=== PATIENT | female | born 1955 | race Caucasian/White ===

== ENCOUNTER → 2019-11-02 | Emergency (ER) | payer SELFPAY ==
[~2019-11-02] MED LIST: BENZTROPINE MESYLATE INJ 2 MG/2 ML AMPULE IM ONE; BENZTROPINE MESYLATE INJ 2 MG/2 ML AMPULE IM SCH; CEFTRIAXONE INJ 1000 MG VIAL IM ONE; CEPHALEXIN 500 MG CAPSULE PO SCH; DIPHENHYDRAMINE HCL 50 MG/ML VIAL IM ONE; HALOPERIDOL DECANOATE INJ 100 MG/1 ML VIAL IM ONE; HALOPERIDOL LACTATE INJ 5 MG/1 ML VIAL IM PRN; HALOPERIDOL LACTATE INJ 5 MG/1 ML VIAL IM SCH; KETAMINE HCL INJ 500 MG/10 ML VIAL IM ONE; LIDOCAINE 1% INJ (10 MG/ML) 10 ML MDV INJ ONE; LORAZEPAM INJ 2 MG/1 ML VIAL IM ONE; LORAZEPAM INJ 2 MG/1 ML VIAL IM PRN; MIDAZOLAM 2 MG/2 ML INJ IM ONE; ZIPRASIDONE MESYLATE INJ/PF 20 MG SDV IM ONE; ZIPRASIDONE MESYLATE INJ/PF 20 MG SDV IM PRN
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
[2019-11-02 11:42] LABS: ABSOLUTE BASOPHILS # (AUTO) 0.1 10^3/uL (0.0-0.2); ABSOLUTE LYMPHOCYTES (AUTO) 0.8 10^3/uL (0.5-4.7); ABSOLUTE NEUT (AUTO) 6.2 10^3/uL (1.7-8.2); BASOPHILS % (AUTO) 0.7 % (0-2); EOSINOPHILS % (AUTO) 0.4 % (0-6); HEMATOCRIT 40.6 % (36.0-47.0); HEMOGLOBIN 14.2 g/dL (12.0-15.5); LYMPHOCYTES % (AUTO) 9.8 % (13-45); MEAN CORPUSCULAR HEMOGLOBIN 30.9 pg (27.0-33.4); MEAN CORPUSCULAR HGB CONC 35.1 g/dL (32.0-36.0); MEAN CORPUSCULAR VOLUME 88 fl (80-97); MONOCYTES % (AUTO) 12.1 % (3-13); PLATELET COUNT 313 10^3/uL (150-450); RED BLOOD COUNT 4.61 10^6/uL (3.72-5.28); RED CELL DISTRIBUTION WIDTH 13.5 % (11.5-14.0); TOTAL CELLS COUNTED % (AUTO) 100 %
[2019-11-02 11:58] LABS: ALBUMIN 4.2 g/dL (3.5-5.0); ALKALINE PHOSPHATASE 103 U/L (38-126); ANION GAP 8 (5-19); ASPARTATE AMINO TRANSFERASE 27 U/L (14-36); BILIRUBIN,TOTAL 0.6 mg/dL (0.2-1.3); BLOOD UREA NITROGEN 3 mg/dL (7-20); CALCIUM 9.1 mg/dL (8.4-10.2); CARBON DIOXIDE 29 mmol/L (22-30); CHLORIDE 93 mmol/L (98-107); GLUCOSE 131 mg/dL (75-110); POTASSIUM 3.7 mmol/L (3.6-5.0); TOTAL PROTEIN 6.9 g/dL (6.3-8.2)
[2019-11-02 11:59] LABS: ACETAMINOPHEN < 10 ug/mL (10-30); ALCOHOL < 10 mg/dL (NONE DETECTED); SALICYLATE < 1.0 mg/dL (2.0-20.0)
[2019-11-02 12:29] LABS: APPEARANCE,URINE CLOUDY; BILIRUBIN,URINE NEGATIVE (NEGATIVE); COLOR,URINE YELLOW; GLUCOSE, URINE NEGATIVE (NEGATIVE); KETONES,URINE NEGATIVE (NEGATIVE); LEUKOCYTE ESTERASE,URINE MODERATE (NEGATIVE); NITRITE,URINE NEGATIVE (NEGATIVE); PROTEIN,URINE NEGATIVE (NEGATIVE); URINE SPECIFIC GRAVITY 1.003; UROBILINOGEN,URINE NEGATIVE mg/dL (<2.0)
[2019-11-02 12:45] LABS: URINE AMPHETAMINES SCREEN NEGATIVE; URINE BARBITURATES SCREEN NEGATIVE; URINE COCAINE SCREEN NEGATIVE; URINE MARIJUANA (THC) SCREEN NEGATIVE; URINE METHADONE SCREEN NEGATIVE; URINE PHENCYCLIDINE SCREEN NEGATIVE
[2019-11-02 12:46] LABS: URINE BENZODIAZEPINES SCREEN UNCONFIRMED POSITIVE
[2019-11-02] MEDS: BENZTROPINE MESYLATE INJ 2 MG/2 ML AMPULE IM SCH (13:30)
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
[2019-11-02] MEDS: DIPHENHYDRAMINE HCL 50 MG/ML VIAL IM PRN (20:32)
--- NOTE | 2019-11-02 23:15 | EKG REPORT ---
SEVERITY:- BORDERLINE ECG - SINUS RHYTHM BORDERLINE T WAVE ABNORMALITIES : Confirmed by: Román De Dios MD 02-Nov-2019 23:13:50
[2019-11-03] MEDS: DIPHENHYDRAMINE HCL 50 MG/ML VIAL IM PRN (08:52)
[2019-11-03] MEDS: BENZTROPINE MESYLATE INJ 2 MG/2 ML AMPULE IM SCH (09:04)
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
[2019-11-03] MEDS: HALOPERIDOL LACTATE INJ 5 MG/1 ML VIAL IM SCH (17:19)
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
[2019-11-04] MEDS: BENZTROPINE MESYLATE INJ 2 MG/2 ML AMPULE IM SCH (11:21)
[2019-11-04] MEDS: HALOPERIDOL LACTATE INJ 5 MG/1 ML VIAL IM SCH ×2 (11:22→22:41)
--- NOTE | 2019-11-04 12:49 | ER Document Report ---
Doctor's Note Notes: 11/04/19 12:48 Constitutional: Nontoxic appearance, no acute distress Eyes: Nonicteric, extraocular movements intact, sclera clear Cardiovascular: No JVD Respiratory: Nonlabored breathing, no use of accessory muscles, no tachypnea Gastrointestinal: Abdomen not distended Muculoskeletal: Moves all extremities well, normal gait Skin: Normal color Neuro: Awake alert oriented, pressured speech Psych: Hostile toward staff, increased psychomotor agitation, poor eye contact Patient with incidental UTI, urine will be cultured and patient started on Keflex twice a day. Patient otherwise medically clear for discharge or transfer pending behavioral health team disposition.
[2019-11-04] MEDS: CEPHALEXIN 500 MG CAPSULE PO SCH (22:42)
[2019-11-05] MEDS: HALOPERIDOL LACTATE INJ 5 MG/1 ML VIAL IM SCH ×2 (10:36→21:01)
[2019-11-05] MEDS: BENZTROPINE MESYLATE INJ 2 MG/2 ML AMPULE IM SCH (10:36)
[2019-11-05] MEDS: CEPHALEXIN 500 MG CAPSULE PO SCH ×2 (10:36→21:00)
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
[2019-11-05 21:14] VITALS: BP 123/61
[2019-11-06] MEDS: CEPHALEXIN 500 MG CAPSULE PO SCH (09:59)
[2019-11-06] MEDS: HALOPERIDOL LACTATE INJ 5 MG/1 ML VIAL IM SCH (10:36)
[2019-11-06] MEDS: BENZTROPINE MESYLATE INJ 2 MG/2 ML AMPULE IM SCH (10:36)
[2019-11-07] MEDS: CEPHALEXIN 500 MG CAPSULE PO SCH (00:07)
[2019-11-07] MEDS: HALOPERIDOL LACTATE INJ 5 MG/1 ML VIAL IM SCH (00:08)
== END ==
LOC: ER 10:58
DX: Z04.6 Encounter for general psychiatric examination, requested by authority (principal); F25.0 Schizoaffective disorder, bipolar type; N39.0 Urinary tract infection, site not specified; R45.6 Violent behavior; F17.200 Nicotine dependence, unspecified, uncomplicated; Z91.19 Patient's noncompliance with other medical treatment and regimen; Z78.1 Physical restraint status; Z20.828 Contact with and (suspected) exposure to other viral communicable diseases
CPT/HCPCS: 93005; 99285; 96372; 36415; 80307 ×4; 85025; 87635; 80053; 81001; 93010; J2250; J0515; J1631; J1200; J1630; J2060; J3486; C9803; J3490

== ENCOUNTER 2019-12-03 10:20 | Emergency (ER) | payer SELFPAY ==
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
[2019-12-03] MEDS ORDERED: BACITRACIN ZINC OINTMENT 15 GM TP ONE (11:29)
[2019-12-03] MEDS ORDERED: BENZTROPINE MESYLATE INJ 2 MG/2 ML AMPULE IM ONE (12:16)
[2019-12-03] MEDS ORDERED: HALOPERIDOL DECANOATE INJ 100 MG/1 ML VIAL IM ONE (12:16)
== END 2019-12-03 13:46 | disposition home or self-care (01) ==
LOC: ER 10:20
DX: F20.9 Schizophrenia, unspecified (principal); S60.511A Abrasion of right hand, initial encounter; W26.0XXA Contact with knife, initial encounter
CPT/HCPCS: 99284; 96372; J0515; J1631; J3490